=== PATIENT | female | born 1970 | race Caucasian/White ===

== ENCOUNTER 2016-12-03 10:40 | Emergency (ER) | payer BC ==
[2016-12-03] MEDS ORDERED: DIPHENHYDRAMINE 50 MG/ML VIAL ONE (14:19)
[2016-12-03] MEDS ORDERED: PROCHLORPERAZINE 10 MG/2 ML VIAL ONE (14:19)
[2016-12-03] MEDS ORDERED: SODIUM CHLORIDE 0.9% 1,000 ML ONE (14:20)
[2016-12-03] MEDS ORDERED: KETOROLAC 30 MG/ML VIAL ONE (14:20)
== END 2016-12-03 16:40 | disposition home or self-care (01) ==
LOC: ER 10:40
DX: R42 Dizziness and giddiness (principal); R55 Syncope and collapse; G44.52 New daily persistent headache (NDPH)
CPT/HCPCS: 36415; 70450; 80053; 81001; 82553; 84439; 84443; 84484; 85025; 93005; 96361; 96374; 96375